=== PATIENT | female | born 1985 | race Hispanic/Latino ===

== ENCOUNTER 2016-09-24 17:13 | Emergency (ER) | payer OTHER ==
[2016-09-24 17:59] VITALS: BP 130/49; PULSE 66; RESP 18; TEMP 97.1; O2SAT 99
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
== END 2016-09-24 21:36 | disposition home or self-care (01) ==
LOC: H.ER 17:13
DX: N64.4 Mastodynia (principal); M25.552 Pain in left hip; M54.9 Dorsalgia, unspecified; R07.89 Other chest pain; V03.90XA Pedestrian on foot injured in collision with car, pick-up truck or van, unspecified whether traffic or nontraffic accident, initial encounter; Y93.9 Activity, unspecified